=== PATIENT | female | born 1965 | race Caucasian/White ===

== ENCOUNTER → 2017-03-26 | Outpatient (CLI) | payer OTHER ==
--- NOTE | 2017-03-26 15:20 | US ---
EXAMINATION TYPE: US kidneys/renal and bladder DATE OF EXAM: 03/26/2017 COMPARISON: Correlation CT 03/22/2016 CLINICAL HISTORY: 51-year-old female N18.9 Chronic Kidney Disease. CKD TECHNIQUE: Multiple sonographic images of the kidneys and bladder are obtained. FINDINGS: Right Kidney: 11.2 x 5.3 x 5.3 cm without hydronephrosis. There is a tiny 8 mm cortical-based hypoec hoic lesion at the upper pole. Left Kidney: 10.8 x 6.6 x 5.1 cm without hydronephrosis. There is a 3.4 x 2.2 cm hypoechoic area at t he mid pole, suspected prominent column of Cordell when correlating with prior CT. Bladder: No gross abnormality. Bilateral Jets seen: yes IMPRESSION: 1. No hydronephrosis. 2. Tiny 8mm cortical lesion upper pole right kidney likely a tiny cortical cyst. Internal echoes cou ld be artifactual or could represent debris. Consider 6 month follow-up to reassess this area. 3. On the left, suspect a prominent column of Cordell when correlating with prior CT.
== END | disposition home or self-care (01) ==
LOC: RADUSWWP 13:40
PROVIDERS: ATTEND Family Medicine
DX: N28.9 Disorder of kidney and ureter, unspecified (principal)
CPT/HCPCS: 76770

== ENCOUNTER 2017-04-05 13:56 | Emergency (ER) | payer OTHER ==
--- NOTE | 2017-04-05 15:16 | ED ---
General Adult HPI - General Chief complaint: Upper Respiratory Infection Stated complaint: Cough/SOB Time Seen by Provider: 04/05/17 15:09 Source: patient, RN notes reviewed Mode of arrival: ambulatory Limitations: no limitations - History of Present Illness Initial comments: Patient is a 51-year-old female who presents emergency room today with chief complaint of cough congestion over the last week. She doesn't that she was at the family doctor earlier in the week and had her ears checked and had a negative strep test. She states that she's had increased cough congestion since that time. Positive sputum production it's been yellow in color. Patient states that she's having pain when she coughs feeling in her back as well. Patient admits some congestion. She admits to a sore throat. Denies any other complaints or symptoms currently. Patient denies any recent shortness of breath, chest pain, back pain, abdominal pain, nausea or vomiting, numbness or tingling, dysuria or hematuria, constipation or diarrhea, headaches or visual changes, or any other complaints. - Related Data Home Medications Medication Instructions Recorded Confirmed Cholecalciferol [Vitamin D3] 1,000 unit PO DAILY 03/22/16 04/05/17 Atenolol 100 mg PO DAILY 04/05/17 04/05/17 Lisinopril 40 mg PO DAILY 04/05/17 04/05/17 hydrALAZINE HCL [Apresoline] 50 mg PO TID 04/05/17 04/05/17 Previous Rx's Medication Instructions Recorded Afpb-Nkeo-Zkw 6.25-5-10Mg/5Ml 5 ml PO Q4-6H 5 Days 04/05/17 [Phenergan VC with Codeine] Allergies Allergy/AdvReac Type Severity Reaction Status Date / Time ibuprofen [From Motrin] AdvReac Abdominal Verified 04/05/17 15:18 Pain Review of Systems ROS Statement: Those systems with pertinent positive or pertinent negative responses have been documented in the HPI. ROS Other: All systems not noted in ROS Statement are negative. Past Medical History Past Medical History: Hypertension History of Any Multi-Drug Resistant Organisms: None Reported Past Surgical History: Section, Orthopedic Surgery, Tonsillectomy Additional Past Surgical History / Comment(s): 2 C-SECTIONS. C4 VETERBRAL SURGERY Past Anesthesia/Blood Transfusion Reactions: No Reported Reaction Past Psychological History: No Psychological Hx Reported Smoking Status: Current every day smoker Past Alcohol Use History: Daily Past Drug Use History: None Reported General Exam - General Exam Comments Initial Comments: General: The patient is awake and alert, in no distress, and does not appear acutely ill. Eye: Pupils are equal, round and reactive to light, extra-ocular movements are intact. No nystagmus. There is normal conjunctiva bilaterally. No signs of icterus. Ears, nose, mouth and throat: There are moist mucous membranes and no oral lesions. Neck: The neck is supple, there is no tenderness or JVD. Cardiovascular: There is a regular rate and rhythm. No murmur, rub or gallop is appreciated. Respiratory: Mild expiratory wheeze on the right with forced expiration. respirations are non-labored, breath sounds are equal. No stridor, rales, or rhonchi. Musculoskeletal: Normal ROM, no tenderness. Strength 5/5. Sensation intact. Pulses equal bilaterally 2+. Neurological: A&O x 3. CN II-XII intact, There are no obvious motor or sensory deficits. Coordination appears grossly intact. Speech is normal. Skin: Skin is warm and dry and no rashes or lesions are noted. Psychiatric: Cooperative, appropriate mood & affect, normal judgment. Limitations: no limitations Course Vital Signs 04/05/17 04/05/17 14:39 15:13 Temperature 100.1 F H Pulse Rate 81 Respiratory 16 18 Rate Blood Pressure 125/75 O2 Sat by Pulse 96 Oximetry Medical Decision Making - Medical Decision Making Chest x-ray negative for any acute abnormalities. Results were discussed with patient. Patient will talk medication for her symptoms advised follow-up the family doctor over the next 2 days. She states understanding and is in agreement. Disposition Clinical Impression: Upper respiratory infection Disposition: HOME SELF-CARE Condition: Good Instructions: Upper Respiratory Infection (ED) Additional Instructions: Please use medication as discussed. Please follow-up with family doctor in the next 2 days of symptoms have not improved. Please return to emergency room if the symptoms increase or worsen or for any other concerns. Prescriptions: Vzpr-Hlpf-Cgl 6.25-5-10Mg/5Ml [Phenergan VC with Codeine] 5 ml PO Q4-6H 5 Days Referrals: Robert Rendon MD [Primary Care Provider] - 1-2 days Time of Disposition: 16:09
--- NOTE | 2017-04-05 15:31 | XR ---
EXAMINATION TYPE: XR chest 2V DATE OF EXAM: 04/05/2017 COMPARISON: Chest x-ray March 22, 2016 HISTORY: Cough for one week. TECHNIQUE: Frontal and lateral views of the chest are obtained. FINDINGS: There is new left mid lung lateral linear atelectasis or scarring. No suspicious focal in filtrate, pleural effusion, or pneumothorax is present bilaterally. The cardiac silhouette size is wi thin normal limits. Anterior fusion plate lower cervical spine is now present.. IMPRESSION: No suspicious acute infiltrate identified.
[2017-04-05 16:31] VITALS: BP 126/77; PULSE 82; RESP 16; TEMP 98.7
== END 2017-04-05 16:25 | disposition home or self-care (01) ==
LOC: EC 13:56
DX: J06.9 Acute upper respiratory infection, unspecified (principal); I10 Essential (primary) hypertension; F17.200 Nicotine dependence, unspecified, uncomplicated; Z88.6 Allergy status to analgesic agent; Z79.899 Other long term (current) drug therapy
CPT/HCPCS: 71020; 99283

== ENCOUNTER → 2017-12-24 | Outpatient (CLI) | payer OTHER ==
--- NOTE | 2017-12-24 12:01 | CT ---
EXAMINATION TYPE: CT brain cspine wo con, CT facial bones wo con DATE OF EXAM: 12/24/2017 COMPARISON: NONE HISTORY: Right sided eye swelling with superior laceration CT DLP: 2019 (accession [id number]), 607.9 (accession [id number]) mGycm. Automated Exposure Control for D ose Reduction was Utilized. TECHNIQUE: CT scan of the head and cervical spine are performed without contrast. FINDINGS: There is no acute intracranial hemorrhage, mass effect, or midline shift identified. The ventricles and sulci are within normal limits in size. The globes are intact and the visualized sin uses are clear. Incidental note is made of exophthalmos. Very mild right periorbital and supraorbital as well as infraorbital soft tissue swelling is noted that is preseptal. No post septal soft tissue swelling. Intraconal and extraconal fat are unremarkable. Globes are symmetric and lenses are in plac e. Extraocular muscles are unremarkable. Cervical spine is visualized in its entirety from C1 through upper thoracic levels and demonstrates s atisfactory alignment without evidence of acute fracture or dislocation. Prevertebral soft tissue ap pears within normal limits. The C1-C2 articulation is unremarkable. There is reversal usual cervica l lordosis from C3 through C5. C6-C7 demonstrates anterior cervical fusion. Small posterior disc oste ophyte complexes seen at C3-C4 as well as at C5-C6. Mild multilevel uncovertebral hypertrophy and fac et arthropathy are seen. Prominent vascular groove is seen through the maxilla at the hard palate. Maxillary spine and pterygo id bones are intact. Nasal bone is intact. Orbits are intact. Zygomatic arches are symmetric. Temporo mandibular joints are unremarkable. Lamina papyracea are also intact. No evidence of facial bone frac ture. IMPRESSION: 1. There is no acute fracture or dislocation evident in the cervical spine. 2. No acute intracranial hemorrhage, mass effect, or midline shift is seen. 3. No evidence of facial bone fracture. 4. Right periorbital preseptal soft tissue swelling compatible with soft tissue contusion. No underly ing fracture, globe rupture, CT evidence of lens displacement, or post septal inflammatory fat strand ing is seen. Incidentally noted exophthalmos. 5. Mild multilevel degenerative changes of the cervical spine, postsurgical changes, and reversal usu al cervical lordosis.
== END | disposition home or self-care (01) ==
LOC: RADCTMAIN 11:22
PROVIDERS: ATTEND Family Medicine
DX: M47.812 Spondylosis without myelopathy or radiculopathy, cervical region (principal); R22.0 Localized swelling, mass and lump, head; Z98.1 Arthrodesis status
CPT/HCPCS: 70450; 70486; 72125

== ENCOUNTER 2018-04-13 14:58 | Emergency (ER) | payer OTHER ==
[2018-04-13 15:16] VITALS: TEMP 98.3
[2018-04-13] MEDS ORDERED: MORPHINE SULFATE 4 MG/ML SYRINGE IV STA (15:33)
[2018-04-13] MEDS ORDERED: ONDANSETRON 4 MG/2 ML VIAL IVP STA (15:33)
[2018-04-13] MEDS ORDERED: SODIUM CHLORIDE 0.9% 1,000 ML IV STA ×2 (15:33→18:56)
--- NOTE | 2018-04-13 15:36 | ED ---
General Adult HPI - General Chief complaint: Abdominal Pain Stated complaint: Stomach pain Time Seen by Provider: 04/13/18 15:22 Source: patient, RN notes reviewed Mode of arrival: ambulatory Limitations: no limitations - History of Present Illness Initial comments: Patient's a 52-year-old female presents emergency room today with a chief complaint of abdominal pain. Patient does admit that over the last today she's been expressing some abdominal discomfort. She describes it as "razor blades" throughout the entire abdomen. Patient states that she's had increased nausea vomiting diarrhea. She states that the nausea vomiting has improved over the last day but still having multiple bouts of diarrhea. Denies any recent travel or antibiotic use. Patient denies any other complaints currently. Patient denies any recent fever, chills, shortness of breath, chest pain, back pain, numbness or tingling, dysuria or hematuria, constipation or diarrhea, headaches or visual changes, or any other complaints. - Related Data Home Medications Medication Instructions Recorded Confirmed Lisinopril 40 mg PO DAILY 04/05/17 04/13/18 Atenolol/Chlorthalidone 1 tab PO DAILY 04/13/18 04/13/18 [Atenolol-Chlorthalidone 100-25] Multivitamins, Thera [Multivitamin 1 tab PO DAILY 04/13/18 04/13/18 (formulary)] hydrALAZINE HCL [Apresoline] 100 mg PO BID 04/13/18 04/13/18 Previous Rx's Medication Instructions Recorded Ciprofloxacin HCl [Cipro] 500 mg PO Q12HR #20 day 04/13/18 Dicyclomine [Bentyl] 20 mg PO QID #20 tablet 04/13/18 metroNIDAZOLE [Flagyl] 500 mg PO TID 10 Days tab 04/13/18 Allergies Allergy/AdvReac Type Severity Reaction Status Date / Time ibuprofen [From Motrin] AdvReac Abdominal Verified 04/13/18 15:44 Pain Review of Systems ROS Statement: Those systems with pertinent positive or pertinent negative responses have been documented in the HPI. ROS Other: All systems not noted in ROS Statement are negative. Past Medical History Past Medical History: Hypertension History of Any Multi-Drug Resistant Organisms: None Reported Past Surgical History: Section, Orthopedic Surgery, Tonsillectomy Additional Past Surgical History / Comment(s): 2 C-SECTIONS. C4 VETERBRAL SURGERY Past Anesthesia/Blood Transfusion Reactions: No Reported Reaction Past Psychological History: No Psychological Hx Reported Smoking Status: Current every day smoker Past Alcohol Use History: Daily Past Drug Use History: None Reported General Exam - General Exam Comments Initial Comments: General: The patient is awake and alert, in no distress, and does not appear acutely ill. Eye: Pupils are equal, round and reactive to light. Extra-ocular movements are intact. No nystagmus. There is normal conjunctiva bilaterally. No signs of icterus. Ears, nose, mouth and throat: There are moist mucous membranes and no oral lesions. Neck: The neck is supple, there is no tenderness or JVD. Cardiovascular: There is a regular rate and rhythm. No murmur, rub or gallop is appreciated. Respiratory: Lungs are clear to auscultation, respirations are non-labored, breath sounds are equal. No wheezes, stridor, rales, or rhonchi. Gastrointestinal: Soft on palpation. Patient does have increased tenderness right lower quadrant and right side of the abdomen. No rebound, guarding or CVA tenderness. Musculoskeletal: Normal ROM, no tenderness. Sensation intact. Strength 5/5. Pulses equal bilaterally 2+. Neurological: A&O x 3. CN II-XII intact, There are no obvious motor or sensory deficits. Coordination appears grossly intact. Speech is normal. Skin: Skin is warm and dry and no rashes or lesions are noted. Psychiatric: Cooperative, appropriate mood & affect, normal judgment. Limitations: no limitations Course Vital Signs 04/13/18 15:14 Temperature 98.3 F Pulse Rate 86 Respiratory 18 Rate Blood Pressure 95/63 O2 Sat by Pulse 99 Oximetry Medical Decision Making - Medical Decision Making Patient's labs been reviewed does show mildly elevated kidney function. Patient does have multiple bouts of diarrhea last 2 days. Patient C. diff negative. Remaining labs been reviewed. CT abdomen and pelvis does show evidence for colitis. Patient clinically appears well. Her vitals are stable. Options were discussed with patient about admission to the hospital. Patient states she would like to try outpatient treatment. Patient given a total 2 L IV fluids here in the emergency room. Will be discharged home placed on Cipro Flagyl advised follow-up the family doctor in the next 2 days. She states she has an appointment with her family doctor tomorrow. She is advised she should have kidney function rechecked later in the week. Advised return if symptoms increase or worsen. - Lab Data Result diagrams: 04/13/18 16:08 04/13/18 16:08 Lab Results 04/13/18 04/13/18 04/13/18 Range/Units 16:08 16:08 16:30 WBC 9.2 (3.8-10.6) k/uL RBC 3.63 L (3.80-5.40) m/uL Hgb 12.2 (11.4-16.0) gm/dL Hct 37.0 (34.0-46.0) % MCV 102.1 H (80.0-100.0) fL MCH 33.6 (25.0-35.0) pg MCHC 32.9 (31.0-37.0) g/dL RDW 12.6 (11.5-15.5) % Plt Count 238 (150-450) k/uL Neutrophils % 88 % Lymphocytes % 7 % Monocytes % 3 % Eosinophils % 1 % Basophils % 0 % Neutrophils # 8.0 H (1.3-7.7) k/uL Lymphocytes # 0.7 L (1.0-4.8) k/uL Monocytes # 0.3 (0-1.0) k/uL Eosinophils # 0.0 (0-0.7) k/uL Basophils # 0.0 (0-0.2) k/uL Macrocytosis Slight Sodium 135 L (137-145) mmol/L Potassium 4.5 (3.5-5.1) mmol/L Chloride 108 H (98-107) mmol/L Carbon Dioxide 16 L (22-30) mmol/L Anion Gap 11 mmol/L BUN 32 H (7-17) mg/dL Creatinine 1.87 H (0.52-1.04) mg/dL Est GFR (CKD-EPI)AfAm 36 (>60 ml/min/1.73 sqM) Est GFR (CKD-EPI)NonAf 31 (>60 ml/min/1.73 sqM) Glucose 114 H (74-99) mg/dL Calcium 10.2 (8.4-10.2) mg/dL Total Bilirubin 0.4 (0.2-1.3) mg/dL AST 30 (14-36) U/L ALT 36 (9-52) U/L Alkaline Phosphatase 87 (38-126) U/L Total Protein 6.9 (6.3-8.2) g/dL Albumin 3.9 (3.5-5.0) g/dL Amylase 45 (30-110) U/L Lipase 107 (23-300) U/L Urine Color Urine Appearance (Clear) Urine pH (5.0-8.0) Ur Specific [place] (1.001-1.035) Urine Protein (Negative) Urine Glucose (UA) (Negative) Urine Ketones (Negative) Urine Blood (Negative) Urine Nitrite (Negative) Urine Bilirubin (Negative) Urine Urobilinogen (<2.0) mg/dL Ur Leukocyte Esterase (Negative) Urine RBC (0-5) /hpf Urine WBC (0-5) /hpf Ur Squamous Epith Cells (0-4) /hpf Urine Bacteria (None) /hpf Hyaline Casts (0-2) /lpf Granular Casts (0) /lpf Urine Mucus (None) /hpf C. difficile (EIA) Intrp Negative (Negative) 04/13/18 Range/Units 16:39 WBC (3.8-10.6) k/uL RBC (3.80-5.40) m/uL Hgb (11.4-16.0) gm/dL Hct (34.0-46.0) % MCV (80.0-100.0) fL MCH (25.0-35.0) pg MCHC (31.0-37.0) g/dL RDW (11.5-15.5) % Plt Count (150-450) k/uL Neutrophils % % Lymphocytes % % Monocytes % % Eosinophils % % Basophils % % Neutrophils # (1.3-7.7) k/uL Lymphocytes # (1.0-4.8) k/uL Monocytes # (0-1.0) k/uL Eosinophils # (0-0.7) k/uL Basophils # (0-0.2) k/uL Macrocytosis Sodium (137-145) mmol/L Potassium (3.5-5.1) mmol/L Chloride (98-107) mmol/L Carbon Dioxide (22-30) mmol/L Anion Gap mmol/L BUN (7-17) mg/dL Creatinine (0.52-1.04) mg/dL Est GFR (CKD-EPI)AfAm (>60 ml/min/1.73 sqM) Est GFR (CKD-EPI)NonAf (>60 ml/min/1.73 sqM) Glucose (74-99) mg/dL Calcium (8.4-10.2) mg/dL Total Bilirubin (0.2-1.3) mg/dL AST (14-36) U/L ALT (9-52) U/L Alkaline Phosphatase (38-126) U/L Total Protein (6.3-8.2) g/dL Albumin (3.5-5.0) g/dL Amylase (30-110) U/L Lipase (23-300) U/L Urine Color Dark Brown Urine Appearance Cloudy H (Clear) Urine pH 5.0 (5.0-8.0) Ur Specific [place] 1.019 (1.001-1.035) Urine Protein 1+ H (Negative) Urine Glucose (UA) Negative (Negative) Urine Ketones Negative (Negative) Urine Blood Negative (Negative) Urine Nitrite Negative (Negative) Urine Bilirubin Negative (Negative) Urine Urobilinogen 2.0 (<2.0) mg/dL Ur Leukocyte Esterase Negative (Negative) Urine RBC 1 (0-5) /hpf Urine WBC 7 H (0-5) /hpf Ur Squamous Epith Cells 6 H (0-4) /hpf Urine Bacteria Moderate H (None) /hpf Hyaline Casts 128 H (0-2) /lpf Granular Casts 140 (0) /lpf Urine Mucus Moderate H (None) /hpf C. difficile (EIA) Intrp (Negative) Disposition Clinical Impression: Abdominal pain, Colitis Disposition: HOME SELF-CARE Condition: Good Instructions: Colitis (ED) Additional Instructions: Please use medication as discussed. Please follow-up with family doctor in the next 2 days of symptoms have not improved. Please return to emergency room if the symptoms increase or worsen or for any other concerns. Prescriptions: Ciprofloxacin HCl [Cipro] 500 mg PO Q12HR #20 day Dicyclomine [Bentyl] 20 mg PO QID #20 tablet metroNIDAZOLE [Flagyl] 500 mg PO TID 10 Days tab Is patient prescribed a controlled substance at d/c from ED?: No Referrals: Robert Rendon MD [Primary Care Provider] - 1-2 days Time of Disposition: 19:06
[2018-04-13 16:33] LABS: Basophils % (A) 0 %; Eosinophils % (A) 1 %; HGB 12.2 gm/dL (11.4-16.0); Lymphocytes # (A) 0.7 k/uL (1.0-4.8); Lymphocytes % (A) 7 %; MCH 33.6 pg (25.0-35.0); MCHC 32.9 g/dL (31.0-37.0); MCV 102.1 fL (80.0-100.0); Macrocytosis Slight; Mean Platelet Volume 8.4; Monocytes # (A) 0.3 k/uL (0-1.0); Monocytes % (A) 3 %; Neutrophils % (A) 88 %; Platelet Count 238 k/uL (150-450); RBC 3.63 m/uL (3.80-5.40); RDW 12.6 % (11.5-15.5); WBC 9.2 k/uL (3.8-10.6)
[2018-04-13 16:45] LABS: Albumin 3.9 g/dL (3.5-5.0); Calcium 10.2 mg/dL (8.4-10.2); Potassium 4.5 mmol/L (3.5-5.1); Total Bilirubin 0.4 mg/dL (0.2-1.3); Total Protein 6.9 g/dL (6.3-8.2)
[2018-04-13 16:58] LABS: Appearance,Urine Cloudy (Clear); Bacteria,Urine Moderate /hpf; Bilirubin,Urine Negative (Negative); Blood,Urine Negative (Negative); Color,Urine Dark Brown; Glucose,Urine (UA) Negative (Negative); Granular Casts,Urine 140 /lpf (0); Hyaline Casts,Urine 128 /lpf (0-2); Ketones,Urine Negative (Negative); Leukocyte Esterase,Urine Negative (Negative); Mucus,Urine Moderate /hpf; Nitrite,Urine Negative (Negative); Protein,Urine 1+ (Negative); RBC,Urine 1 /hpf (0-5); Specific Gravity,Urine 1.019 (1.001-1.035); Squamous Epithelial Cell,Urine 6 /hpf (0-4); WBC,Urine 7 /hpf (0-5)
--- NOTE | 2018-04-13 18:28 | CT ---
EXAMINATION TYPE: CT abdomen pelvis w con DATE OF EXAM: 04/13/2018 COMPARISON: 03/22/2016 HISTORY: Diarrhea x 3 days, right lower quadrant pain. CT DLP: 945.7 mGycm Automated exposure control for dose reduction was used. TECHNIQUE: Helical acquisition of images was performed from the lung bases through the pelvis. CONTRAST: Performed without Oral Contrast and with IV Contrast, patient injected with 100 mL of Isovu e 300. FINDINGS: LUNG BASES: No significant abnormality is appreciated. LIVER/GB: A 1 cm hypodense right hepatic lobe lesion is identified, which was hyperdense on the prior 03/22/2016 CT. This presumably represents an incidental cavernous hemangioma which can be proven usin g MRI. PANCREAS: No significant abnormality is seen. SPLEEN: No significant abnormality is seen. ADRENALS: No significant abnormality is seen. KIDNEYS: No significant abnormality is seen. FREE AIR: No free air is visualized. RETROPERITONEAL ADENOPATHY: None visualized REPRODUCTIVE ORGANS: No significant abnormality is seen URINARY BLADDER: No significant abnormality is seen. PELVIC ADENOPATHY: None visualized. OSSEOUS STRUCTURES: No significant abnormality is seen. BOWEL: There is prominent circumferential colonic indistinctness with associated edematous reticulat ion throughout the ascending mesocolon - extending from the cecum up to the hepatic flexure. There is associated mild circumferential mural thickening. THere is no extraluminal gas. No abnormal gas or f luid collections throughout the abdomen and pelvis. The appendix does not appear to be involved. VASCULATURE: No acute process. IMPRESSION: ASCENDING COLITIS, LIKELY INFLAMMATORY/INFECTIOUS ETIOLOGY.
[2018-04-13 19:05] VITALS: BP 113/80
[2018-04-13 20:09] VITALS: PULSE 76; RESP 16
== END 2018-04-13 20:09 | disposition home or self-care (01) ==
LOC: EC 14:58
DX: K52.9 Noninfective gastroenteritis and colitis, unspecified (principal); I10 Essential (primary) hypertension; F17.200 Nicotine dependence, unspecified, uncomplicated; Z79.899 Other long term (current) drug therapy; Z88.6 Allergy status to analgesic agent
CPT/HCPCS: 99284; 96374; 96375; 96361 ×3; 36415; 80053; 82150; 83690; 85025; 81001; 87324; 74177; J2270; J2405; Q9967

== ENCOUNTER 2019-03-28 14:10 | Emergency (ER) | payer OTHER ==
[2019-03-28 14:58] LABS: Appearance,Urine Clear (Clear); Bilirubin,Urine Negative (Negative); Blood,Urine Negative (Negative); Color,Urine Light Yellow; Glucose,Urine (UA) Negative (Negative); Ketones,Urine Negative (Negative); Leukocyte Esterase,Urine Negative (Negative); Nitrite,Urine Negative (Negative); Protein,Urine Negative (Negative); Specific Gravity,Urine 1.007 (1.001-1.035); Urobilinogen,Urine <2.0 mg/dL (<2.0)
[2019-03-28 15:09] LABS: Amphetamine Screen,Urine Not Detected (NotDetected); Barbiturate Screen,Urine Not Detected (NotDetected); Benzodiazepines Screen,Urine Not Detected (NotDetected); Cocaine Screen,Urine Not Detected (NotDetected); Methadone Screen, Urine Not Detected (NotDetected); Opiate Screen,Urine Not Detected (NotDetected); Oxycodone Screen, Urine Not Detected (NotDetected); Phencyclidine Screen,Urine Not Detected (NotDetected); Tricyclic Antidepressant,Urine Not Detected (NotDetected); Urn Cannabinoid Scrn Detected (NotDetected)
[2019-03-28] MEDS ORDERED: DIPH,PERTUS(ACELL)TETVAC-LF 0.5 ML VIAL IM ONE (15:45)
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
[2019-03-28] MEDS ORDERED: NICOTINE 14MG/24HR PATCH TRANSDERM STA (16:26)
[2019-03-28] MEDS ORDERED: ACETAMINOPHEN TAB 500 MG TAB PO STA (16:59)
[2019-03-28 18:13] VITALS: BP 134/90; PULSE 78; RESP 18
== END 2019-03-28 18:11 | disposition home or self-care (01) ==
LOC: EC 14:10
DX: F32.9 Major depressive disorder, single episode, unspecified (principal); F10.129 Alcohol abuse with intoxication, unspecified; S51.812A Laceration without foreign body of left forearm, initial encounter; S51.811A Laceration without foreign body of right forearm, initial encounter; S71.119A Laceration without foreign body, unspecified thigh, initial encounter; Z23 Encounter for immunization; I10 Essential (primary) hypertension; F17.200 Nicotine dependence, unspecified, uncomplicated; Z79.899 Other long term (current) drug therapy; Z88.6 Allergy status to analgesic agent; X78.9XXA Intentional self-harm by unspecified sharp object, initial encounter
CPT/HCPCS: 82075; 81003; 80306; 90715; 99285; 90471; S4990

== ENCOUNTER 2019-08-13 11:00 | Inpatient (IN) | payer MEDICAID, OTHER ==
--- NOTE | 2019-08-13 11:43 | ED ---
General Adult HPI - General Chief complaint: Psychiatric Symptoms Stated complaint: mental health eval Time Seen by Provider: 08/13/19 11:22 Source: patient, RN notes reviewed Mode of arrival: ambulatory Limitations: no limitations - History of Present Illness Initial comments: Patient is a pleasant 54-year-old female presenting to the emergency Department with depression. Patient states her wants her evaluated. Patient admits to having many stressors of being depressed. Patient is tearful. Patient denies suicidal or homicidal thoughts. No hallucinations. He should does have some back discomfort however that has been chronic for years. Patient has not been sleeping quite as well as normal however is sleeping. Patient has been eating and drinking less than normal. Patient denies alcohol or drug use. - Related Data Home Medications Medication Instructions Recorded Confirmed Atenolol/Chlorthalidone 1 tab PO DAILY 04/13/18 03/28/19 [Atenolol-Chlorthalidone 100-25] Ergocalciferol (Vitamin D2) 50,000 unit PO Q30D 03/28/19 03/28/19 [Drisdol] HYDROcodone/APAP 5-325MG [[place] 1 tab PO DAILY PRN 03/28/19 03/28/19 5-325] Lisinopril 20 mg PO DAILY 03/28/19 03/28/19 buPROPion HCL [Wellbutrin XL] 150 mg PO BID 03/28/19 03/28/19 Allergies Allergy/AdvReac Type Severity Reaction Status Date / Time ibuprofen [From Motrin] AdvReac Abdominal Verified 08/13/19 11:04 Pain Review of Systems ROS Statement: Those systems with pertinent positive or pertinent negative responses have been documented in the HPI. ROS Other: All systems not noted in ROS Statement are negative. Constitutional: Denies: fever Eyes: Denies: eye pain ENT: Denies: ear pain Respiratory: Denies: cough Cardiovascular: Denies: chest pain Endocrine: Denies: fatigue Gastrointestinal: Denies: abdominal pain Genitourinary: Denies: dysuria Musculoskeletal: Reports: back pain (Low back pain for the past at least 2 years) Skin: Denies: rash Neurological: Denies: weakness Psychiatric: Reports: anxiety, depression. Denies: auditory hallucinations, visual hallucinations, homicidal thoughts, suicidal thoughts Past Medical History Past Medical History: Hypertension History of Any Multi-Drug Resistant Organisms: None Reported Past Surgical History: Back Surgery, Section, Orthopedic Surgery, Tonsillectomy Additional Past Surgical History / Comment(s): 2 C-SECTIONS. C4 VETERBRAL SURGERY Past Anesthesia/Blood Transfusion Reactions: No Reported Reaction Past Psychological History: Anxiety, Depression Smoking Status: Current every day smoker Past Alcohol Use History: None Reported Past Drug Use History: None Reported General Exam Limitations: no limitations General appearance: alert, in no apparent distress Head exam: Present: normocephalic Eye exam: Present: normal appearance Neck exam: Present: normal inspection Respiratory exam: Present: normal lung sounds bilaterally Cardiovascular Exam: Present: regular rate, normal rhythm GI/Abdominal exam: Present: soft. Absent: tenderness Extremities exam: Present: normal inspection Back exam: Present: tenderness (Mild tenderness lumbar spine) Neurological exam: Present: alert Psychiatric exam: Present: depressed, other (Tearful) Skin exam: Present: normal color Course Vital Signs 08/13/19 11:01 Temperature 97.8 F Pulse Rate 64 Respiratory 18 Rate Blood Pressure 124/76 O2 Sat by Pulse 98 Oximetry Medical Decision Making - Medical Decision Making Patient seen by mental health services, who will admit. - Lab Data Lab Results 08/13/19 Range/Units Unknown Urine Opiates Screen Not Detected (NotDetected) Ur Oxycodone Screen Not Detected (NotDetected) Urine Methadone Screen Not Detected (NotDetected) Ur Propoxyphene Screen Not Detected (NotDetected) Ur Barbiturates Screen Not Detected (NotDetected) U Tricyclic Antidepress Not Detected (NotDetected) Ur Phencyclidine Scrn Not Detected (NotDetected) Ur Amphetamines Screen Not Detected (NotDetected) U Methamphetamines Scrn Not Detected (NotDetected) U Benzodiazepines Scrn Not Detected (NotDetected) Urine Cocaine Screen Not Detected (NotDetected) U Marijuana (THC) Screen Detected H (NotDetected) - Radiology Data Radiology results: image reviewed (Lumbar x-ray shows mild wedging of L1 which is likely chronic) Disposition Clinical Impression: Depression Disposition: TRANSFER TO PSYCH HOSP/UNIT Is patient prescribed a controlled substance at d/c from ED?: No Referrals: Robert Rendon MD [Primary Care Provider] - 1-2 days Decision Time: 14:09
[2019-08-13 11:57] LABS: Amphetamine Screen,Urine Not Detected (NotDetected); Barbiturate Screen,Urine Not Detected (NotDetected); Benzodiazepines Screen,Urine Not Detected (NotDetected); Cocaine Screen,Urine Not Detected (NotDetected); Methadone Screen, Urine Not Detected (NotDetected); Opiate Screen,Urine Not Detected (NotDetected); Oxycodone Screen, Urine Not Detected (NotDetected); Phencyclidine Screen,Urine Not Detected (NotDetected); Tricyclic Antidepressant,Urine Not Detected (NotDetected); Urn Cannabinoid Scrn Detected (NotDetected)
--- NOTE | 2019-08-13 12:23 | XR ---
EXAMINATION TYPE: XR lumbar spine 2 or 3V , 3 VIEWS DATE OF EXAM ORDERED: 08/13/2019 HISTORY: Low back pain. COMPARISON: None. FINDINGS: There is mild wedging of the L1 vertebral body. This appears chronic. Alignment is unremar kable. This hypertrophic spondylosis at L1-2 and to a lesser extent L3-4. Alignment remains normal. T he pedicles are intact. There is a minimal levoscoliosis. IMPRESSION: MILD WEDGING OF THE L1 VERTEBRAL BODY WHICH I BELIEVE IS CHRONIC WELL SOME MILD DEGENERATIVE CH HITESH.
[2019-08-13] MEDS ORDERED: LORazepam 1 MG TAB PO STA (13:07)
[2019-08-13] MEDS ORDERED: MAG HYDROX/AL HYDROX/SIMETH 30 ML CUP PO PRN (14:15)
[2019-08-13] MEDS ORDERED: MAGNESIUM HYDROXIDE 2,400 MG/10 ML CUP PO PRN (14:15)
[2019-08-13] MEDS: NICOTINE 21MG/24HR PATCH TRANSDERM SCH (16:08)
[2019-08-13] MEDS: ACETAMINOPHEN TAB 325 MG TAB PO PRN (20:19)
[2019-08-13] MEDS ORDERED: PANTOPRAZOLE 40 MG TABLET PO SCH (22:45)
[2019-08-13] MEDS: PANTOPRAZOLE 40 MG TABLET PO SCH (22:52)
[2019-08-14] MEDS: ACETAMINOPHEN TAB 325 MG TAB PO PRN ×3 (06:01→16:39)
[2019-08-14 07:49] LABS: RBC 4.02 m/uL (3.80-5.40); WBC 5.5 k/uL (3.8-10.6)
[2019-08-14 07:50] LABS: Basophils % (A) 1 %; Eosinophils # (A) 0.1 k/uL (0-0.7); Eosinophils % (A) 3 %; HCT 37.7 % (34.0-46.0); HGB 12.4 gm/dL (11.4-16.0); Lymphocytes # (A) 1.9 k/uL (1.0-4.8); Lymphocytes % (A) 34 %; MCH 30.8 pg (25.0-35.0); MCHC 32.8 g/dL (31.0-37.0); MCV 93.9 fL (80.0-100.0); Mean Platelet Volume 8.9; Monocytes # (A) 0.4 k/uL (0-1.0); Monocytes % (A) 7 %; Neutrophils # (A) 2.9 k/uL (1.3-7.7); Neutrophils % (A) 53 %; Platelet Count 283 k/uL (150-450); RDW 12.4 % (11.5-15.5)
[2019-08-14 08:00] LABS: Albumin 4.8 g/dL (3.5-5.0); Calcium 10.5 mg/dL (8.4-10.2); Potassium 4.5 mmol/L (3.5-5.1); Total Bilirubin 0.6 mg/dL (0.2-1.3); Total Protein 7.8 g/dL (6.3-8.2)
[2019-08-14] MEDS: NICOTINE 21MG/24HR PATCH TRANSDERM SCH (08:25)
[2019-08-14] MEDS: LISINOPRIL 20 MG TAB PO SCH (08:25)
[2019-08-14] MEDS: PANTOPRAZOLE 40 MG TABLET PO SCH (08:25)
[2019-08-14] MEDS: CHLORTHALIDONE 25 MG TAB PO SCH (08:25)
[2019-08-14] MEDS: ATENOLOL 50 MG TAB PO SCH (08:25)
[2019-08-14] MEDS ORDERED: NICOTINE 21MG/24HR PATCH TRANSDERM SCH (09:00)
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
[2019-08-14] MEDS: buPROPion XL 300 MG TAB.ER.24H PO SCH (12:23)
[2019-08-14] MEDS: ESCITALOPRAM 10 MG TAB PO SCH (12:23)
[2019-08-14] MEDS ORDERED: IOPAMIDOL CONTRAST (ORAL USE) VIAL PO PRN (12:36)
--- NOTE | 2019-08-14 13:01 | XR ---
EXAMINATION TYPE: XR chest 2V DATE OF EXAM: 08/14/2019 HISTORY: abd pain, SOB. REFERENCE: Previous study dated 04/05/2017. FINDINGS: There has been a previous ACDF of the lower cervical spine. Lung volumes are prominent. The lungs appear clear. Pleural space are clear. The heart is not enlarge d. IMPRESSION: COPD.
--- NOTE | 2019-08-14 15:24 | CT ---
EXAMINATION TYPE: CT abdomen pelvis wo con DATE OF EXAM: 08/14/2019 COMPARISON: 04/13/2018 HISTORY: RLQ pain CT DLP: 258.5 mGycm Automated exposure control for dose reduction was used. Multiple axial sections were obtained from the diaphragm to the floor the pelvis with oral contrast o nly. Lung bases are clear. There is no pleural effusion. Heart size is normal. There is no pericardial eff usion. Stomach is intact. Liver spleen pancreas gallbladder appear normal. Bile ducts are not dilated. There is no adrenal mass. There is 2 cm vertical cyst lateral right kidney. Kidneys show no hydroneph rosis. Ureters are not dilated. There is no retroperitoneal adenopathy. Bladder distends smoothly. Ut erus is anteverted. There is no inguinal hernia. There are sigmoid minimal diverticula. There is no e vidence of diverticulitis. Appendix is posterior and superior and appears normal. There is no mesente matt edema. There is no ascites or free air. There is no sign of a bowel obstruction. Lumbar vertebra have normal alignment. There is no compression fracture. Bony pelvis is intact. IMPRESSION: Normal appendix. No evidence of renal stone or obstruction. No sign of acute abdomen and pelvis. Ther e is clearing of the inflammatory changes around the ascending colon compared to last exam.
[2019-08-14] MEDS ORDERED: HYDROcodone/APAP 5-325MG 1 EACH TAB PO STA (17:54)
--- NOTE | 2019-08-14 22:40 | CONS ---
CONSULTATION CHIEF COMPLAINT: Major depression with a history of alcoholism. HISTORY OF PRESENT ILLNESS: This lady came in with problems relating to acute episode of depression. She has not been drinking. She is complaining also of right lower quadrant pain, which she states has been there for some time. She has had no fever, chills, diarrhea, hematochezia, urinary complaints, etc. She is also complaining of some pain in the right buttock area where there does seem to be slight swelling. REVIEW OF SYSTEMS: She has had no problems with vision or hearing, headaches, neurologic problems, chest pain, shortness of breath, palpitations, syncope, etc. She has had a history of hypertension. She has not had any vomiting, incontinence, dysuria, frequency, hematuria, diabetes, etc. Past medical history, family history, personal and social histories are all detailed in her admitting summary. She has a history of alcoholism, but has been off alcohol for about a year now. PHYSICAL EXAMINATION: Blood pressure is 124/80 with a pulse of 68, respirations 29. She is afebrile. In general, she appeared to be in no acute distress. Skin color is normal. Skin is warm, dry. Lymph nodes not enlarged. Head, ears, eyes, nose, mouth, and throat were normal. Neck veins not distended. Thyroid is not enlarged. CHEST: Clear. Cardiac exam is normal and the abdomen reveals tenderness in the right lower quadrant. No definite masses. There are bowel sounds. She also has a soft tissue fullness in the right buttock area. Extremities are normal. Neurological is intact. IMPRESSION: 1. Depression. 2. Alcoholism. 3. Right lower quadrant abdominal pain. 4. Swelling or mass in the right buttock. RECOMMENDATIONS: 1. Her usual psychiatric treatment. 2. CT of the abdomen and pelvis without contrast because her GFR is 39. 3. Ultrasound of the right buttocks. Thank you for this consultation, respectively, MMODL / IJN: [id number] /
[2019-08-15] MEDS: NICOTINE 21MG/24HR PATCH TRANSDERM SCH (08:24)
[2019-08-15] MEDS: PANTOPRAZOLE 40 MG TABLET PO SCH (08:24)
[2019-08-15] MEDS: CHLORTHALIDONE 25 MG TAB PO SCH (08:25)
[2019-08-15] MEDS: ESCITALOPRAM 10 MG TAB PO SCH (08:25)
[2019-08-15] MEDS: ATENOLOL 50 MG TAB PO SCH (08:25)
[2019-08-15] MEDS: buPROPion XL 300 MG TAB.ER.24H PO SCH (08:25)
[2019-08-15] MEDS: LISINOPRIL 20 MG TAB PO SCH (08:26)
[2019-08-15 09:35] LABS: Basophils % (A) 1 %; Eosinophils # (A) 0.2 k/uL (0-0.7); Eosinophils % (A) 2 %; HCT 38.5 % (34.0-46.0); HGB 12.5 gm/dL (11.4-16.0); Lymphocytes % (A) 34 %; MCH 30.7 pg (25.0-35.0); MCHC 32.5 g/dL (31.0-37.0); MCV 94.4 fL (80.0-100.0); Monocytes # (A) 0.4 k/uL (0-1.0); Monocytes % (A) 6 %; Neutrophils # (A) 3.3 k/uL (1.3-7.7); Neutrophils % (A) 55 %; Platelet Count 302 k/uL (150-450); RBC 4.08 m/uL (3.80-5.40); RDW 12.4 % (11.5-15.5); WBC 5.9 k/uL (3.8-10.6)
[2019-08-15 09:49] LABS: Albumin 4.9 g/dL (3.5-5.0); Calcium 10.8 mg/dL (8.4-10.2); Total Bilirubin 0.5 mg/dL (0.2-1.3)
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
[2019-08-15 15:25] LABS: Appearance,Urine Clear (Clear); Bacteria,Urine Rare /hpf; Bilirubin,Urine Negative (Negative); Blood,Urine Negative (Negative); Color,Urine Yellow; Glucose,Urine (UA) Negative (Negative); Hyaline Casts,Urine 43 /lpf (0-2); Ketones,Urine Negative (Negative); Leukocyte Esterase,Urine Small (Negative); Mucus,Urine Rare /hpf; Nitrite,Urine Negative (Negative); PH, Urine 5.5 (5.0-8.0); Protein,Urine Negative (Negative); RBC,Urine 1 /hpf (0-5); Specific Gravity,Urine 1.017 (1.001-1.035); Squamous Epithelial Cell,Urine 4 /hpf (0-4); Urobilinogen,Urine <2.0 mg/dL (<2.0); WBC,Urine 3 /hpf (0-5)
[2019-08-15] MEDS: ACETAMINOPHEN TAB 325 MG TAB PO PRN (15:53)
--- NOTE | 2019-08-15 16:02 | US ---
EXAMINATION TYPE: US mass soft tissue chest/back DATE OF EXAM: 08/15/2019 COMPARISON: NONE CLINICAL HISTORY: Mass on Right buttock. Right upper buttock area of pain x couple years TECHNIQUE/FINDINGS: Targeted ultrasound was performed of the gluteal regions for the right-sided pain . Right upper buttock area of concern: no abnormality seen Left upper buttock for comparison: no abnormality seen IMPRESSION: No sonographic abnormality to correspond to the patient's area of pain.
[2019-08-15 22:02] LABS: Urine Alcohol Negative (Negative); Urine Barbiturate Negative (Negative); Urine Cocaine Negative (Negative); Urine Methadone Negative (Negative); Urine Opiates Positive (Negative); Urine Phencyclidine Negative (Negative)
[2019-08-16 00:28] VITALS: TEMP 98.4
[2019-08-16] MEDS: ACETAMINOPHEN TAB 325 MG TAB PO PRN (08:03)
[2019-08-16] MEDS: CHLORTHALIDONE 25 MG TAB PO SCH (08:04)
[2019-08-16] MEDS: NICOTINE 21MG/24HR PATCH TRANSDERM SCH (08:04)
[2019-08-16] MEDS: ATENOLOL 50 MG TAB PO SCH (08:04)
[2019-08-16] MEDS: LISINOPRIL 20 MG TAB PO SCH (08:05)
[2019-08-16] MEDS: ESCITALOPRAM 10 MG TAB PO SCH (08:05)
[2019-08-16] MEDS: PANTOPRAZOLE 40 MG TABLET PO SCH (08:05)
[2019-08-16] MEDS: buPROPion XL 300 MG TAB.ER.24H PO SCH (08:05)
[2019-08-16 08:56] VITALS: BP 118/79; PULSE 111; RESP 16
--- NOTE | 2019-08-16 13:40 | CONS ---
CONSULTATION REASON FOR CONSULT: Renal failure. HISTORY OF PRESENT ILLNESS: The patient is a 54-year-old female who has a history of hypertension and history of EtOH abuse previously. Patient also has a history of depression and was admitted to the inpatient psych unit. She is actually being discharged today. The patient is noted to have a serum creatinine of 1.53 yesterday, which is now down to 1.49. Review of previous labs shows creatinine as low as 0.8 in 2016 and about 1.8 in 2018. Patient states she has lost a significant amount of weight recently and her blood pressure has been running on the lower side at home. She is maintained on lisinopril 20 mg daily along with chlorthalidone 25 mg daily. No history of use of nonsteroidal anti- inflammatory agents. Blood pressure has been on the lower side with systolic around 112 to 113 mmHg. The patient denies any significant change in her urine output. PAST MEDICAL HISTORY: Depression, ETOH abuse, hypertension. PAST SURGICAL HISTORY: , back surgery, tonsillectomy, vertebral surgery. SOCIAL HISTORY: Positive for smoking. No history of drug abuse. Patient does have a history of EtOH abuse. She does have a history of anxiety and depression. MEDICATIONS: Medications prior to admission included chlorthalidone lisinopril, Wellbutrin, [place], Drisdol. REVIEW OF SYSTEMS: As per HPI. Other systems negative. PHYSICAL EXAMINATION: On examination, patient is comfortable, awake, alert, oriented x3, not in any acute distress. Blood pressure is 118/79, heart rate 111 per minute. She is afebrile EXAMINATION OF THE HEART: S1, S2. EXAMINATION OF THE LUNGS: Bilateral breath sounds are heard. ABDOMEN: Soft, nontender. Examination of lower extremities shows no evidence of edema. DAMPENER OPERATOR exam grossly intact. LABS: Labs show sodium 138, potassium 5.0, chloride 104, CO2 is 21, BUN 32, creatinine 1.49, hemoglobin 12.5 g/dL and UA which showed no blood or protein. ASSESSMENT: 1. Acute kidney injury, mostly prerenal. I will hold off on the CRISTI inhibitors for now as blood pressure remains on the lower side and patient has lost a significant amount of weight recently. She is advised to monitor blood pressure at home when she can resume half the dose of the CRISTI inhibitors if her systolic blood pressure remains persistently above 145 mmHg. 2. Rule out chronic kidney disease. Previous creatinine was as low as 0.8 in 2016, but we have a creatinine 1.8 in 2018. However, I believe that was an acute kidney injury. Patient will need followup as outpatient. 3. Hypertension. Blood pressure currently on the lower side. Hold off on lisinopril. Continue with the chlorthalidone for now. 4. Depression, currently improved. Patient will be discharged from inpatient psych. 5. Mild hypercalcemia. Patient is not on any calcium supplements. However, the chlorthalidone can contribute to the hypercalcemia as it is a thiazide diuretic. We will repeat the labs as outpatient and if her calcium remains elevated, patient will need to discontinue the thiazide diuretics. She will also need further workup for the hypercalcemia including PTH and CRISTI level and vitamin D level. I will decrease the dose of chlorthalidone in the meantime to 12.5 mg from 25 mg. Thank you for this consultation. We will continue to follow the patient with you. She should follow up as outpatient for CKD, hypercalcemia and acute kidney injury along with hypertension. MMODL / IJN: [id number] /
--- NOTE | 2019-08-16 15:20 | P.DS ---
Providers Date of admission: 08/13/19 14:09 Attending physician: Manas Small MD Consults: 08/13/19 14:15 Consult Physician Routine Consulting Provider: Robert Rendon Consult Reason/Comments: medical management Do you want consulting provider notified?: Yes 08/15/19 15:13 Consult Physician Stat Consulting Provider: Laney Morris Consult Reason/Comments: High GFR, BUN, CRE Do you want consulting provider notified?: Yes Primary care physician: Robert Rendon - Discharge Diagnosis(es) (1) Major depressive disorder, recurrent severe without psychotic features Status: Chronic Priority: Medium (2) Alcohol use disorder Status: Chronic Priority: Low (3) Marital or partner relational problem Status: Chronic Priority: Medium Hospital Course: She is a 54-year-old female admitted to the psychiatric unit voluntarily with history of suicidal ideation. She was initially evaluated by a psychiatric nurse and emergency room and described feeling sad, depressed and having increased anxiety. She originally denied suicidal thoughts, intent or plan. We are considering discharging her home with her intervene and demanded that she be admitted to the hospital. Reportedly the boyfriend was belligerent with staff and with the patient. She became distraught and verbalized some hopeless thinking and talked about not feeling safe to return home. She described several symptoms of depression including tearfulness, fluctuation in appetite and energy, hopeless thinking and increased anxiety. Past history significant for an alcohol use disorder and she described a 10 year history of daily alcohol use. She alleged that her relationship with her changed after she stopped drinking. He has a history of mental illness and an alcohol use problem. She believes he is angry because she no longer will drink with him. We admitted him her to the psychiatric unit under care of this policy writer typist. Reportedly Is a biopsychosocial assessment. The application security consultant distance education faculty liaison completed initial physical exam and medical history and diagnosed a right lower quadrant abdominal pain and swelling or masses right buttocks. He ordered a CT of the abdomen and pelvis an ultrasound of the right buttocks. The computed tomography scan of the abdomen pelvis showed normal appendix, no evidence of renal stone of disruption, no sign of acute abdomen and pelvis and clearing of inflammatory changes around the ascending colon. The ultrasound showed no abnormality to correspond with the patient's area of pain. The second consult diagnosed acute congestive injury mostly prerenal, rule out kidney disease, hypertension and mild hypercalcemia. We continued outpatient dose of Wellbutrin 150 mg by mouth twice a day and prescribed Lexapro 10 mg daily for complaints of increasing anxiety. She participated in therapeutic groups and activities and posed no management problem. She denied suicidal thoughts, intent or plan throughout the hospitalization. She requested to be discharged that she can return to work. Her plan is to save enough money to afford her own apartment so that she could leave her . She plans to follow-up with her therapist at [facility]. Patient Condition at Discharge: Stable Plan - Discharge Summary Discharge Rx Participant: No New Discharge Prescriptions: New Nicotine 21Mg/24Hr Patch [Habitrol] 1 patch TRANSDERM DAILY patch Escitalopram [Lexapro] 10 mg PO DAILY #30 tab Continue Atenolol/Chlorthalidone [Atenolol-Chlorthalidone 100-25] 1 tab PO DAILY Ergocalciferol (Vitamin D2) [Drisdol] 50,000 unit PO Q30D Lisinopril 20 mg PO DAILY HYDROcodone/APAP 5-325MG [[place] 5-325] 1 tab PO DAILY PRN PRN Reason: Pain buPROPion HCL [Wellbutrin XL] 150 mg PO BID Discharge Medication List Atenolol/Chlorthalidone [Atenolol-Chlorthalidone 100-25] 1 tab PO DAILY 04/13/18 [History] Ergocalciferol (Vitamin D2) [Drisdol] 50,000 unit PO Q30D 03/28/19 [History] HYDROcodone/APAP 5-325MG [[place] 5-325] 1 tab PO DAILY PRN 03/28/19 [History] Lisinopril 20 mg PO DAILY 03/28/19 [History] buPROPion HCL [Wellbutrin XL] 150 mg PO BID 03/28/19 [History] Escitalopram [Lexapro] 10 mg PO DAILY #30 tab 08/16/19 [Rx] Nicotine 21Mg/24Hr Patch [Habitrol] 1 patch TRANSDERM DAILY patch 08/16/19 [Rx] Follow up Appointment(s)/Referral(s): [facility] [Outside] - 08/16/19 12:00 pm (Appointment with Alanna Skelton) Robert Rendon MD [Primary Care Provider] - 1-2 days Patient Instructions/Handouts: How to Stop Smoking (DC), Depression (DC) Activity/Diet/Wound Care/Special Instructions: Activity and diet as tolerated. Avoid the use of street drugs and alcohol. Take all medications as prescribed. When you are in need of refills on your medications please contact your medical provider and/or outpatient psychiatrist to have this done. Please go to scheduled outpatient appointment for aftercare treatment. If symptoms return or become worse, call the crisis line at [phone] and/or go to the nearest emergency room for evaluation. Discharge Disposition: HOME SELF-CARE
[2019-08-17] MEDS ORDERED: CHLORTHALIDONE 25 MG TAB PO SCH (09:00)
== END 2019-08-16 11:50 | disposition home or self-care (01) | DRG 885 ==
LOC: EC 11:00 → 3MHU 14:09
PROVIDERS: ADMIT Psychiatry & Neurology Psychiatry; ATTEND Psychiatry & Neurology Psychiatry
DX: F33.2 Major depressive disorder, recurrent severe without psychotic features (principal); N17.9 Acute kidney failure, unspecified; R45.851 Suicidal ideations; T74.31XA Adult psychological abuse, confirmed, initial encounter; E83.52 Hypercalcemia; F10.21 Alcohol dependence, in remission; F17.200 Nicotine dependence, unspecified, uncomplicated; F41.9 Anxiety disorder, unspecified; G89.29 Other chronic pain; K21.9 Gastro-esophageal reflux disease without esophagitis; M54.9 Dorsalgia, unspecified; R10.31 Right lower quadrant pain; R22.9 Localized swelling, mass and lump, unspecified; I12.9 Hypertensive chronic kidney disease with stage 1 through stage 4 chronic kidney disease, or unspecified chronic kidney disease; N18.9 Chronic kidney disease, unspecified; Z79.899 Other long term (current) drug therapy; Z88.6 Allergy status to analgesic agent; Z62.810 Personal history of physical and sexual abuse in childhood; Y07.03 Male partner, perpetrator of maltreatment and neglect
CPT/HCPCS: 71046; 72100; 74176; 80053; 80061; 80306; 81001; 82075; 83036; 84443; 85025; 99285

== ENCOUNTER → 2020-06-28 | Outpatient (CLI) | payer OTHER ==
[2020-06-28 10:12] LABS: Basophils # (A) 0.1 k/uL (0-0.2); Basophils % (A) 1 %; Eosinophils # (A) 0.1 k/uL (0-0.7); Eosinophils % (A) 2 %; HCT 37.7 % (34.0-46.0); HGB 12.7 gm/dL (11.4-16.0); Lymphocytes # (A) 1.5 k/uL (1.0-4.8); Lymphocytes % (A) 21 %; MCH 32.1 pg (25.0-35.0); MCHC 33.7 g/dL (31.0-37.0); MCV 95.4 fL (80.0-100.0); Mean Platelet Volume 7.6; Monocytes # (A) 0.4 k/uL (0-1.0); Monocytes % (A) 6 %; Neutrophils # (A) 4.8 k/uL (1.3-7.7); Neutrophils % (A) 69 %; Platelet Count 329 k/uL (150-450); RBC 3.95 m/uL (3.80-5.40)
[2020-06-28 11:37] LABS: Erythrocyte Sedimentation Rate 29 mm/hr (0-20)
[2020-06-28 18:04] LABS: ALT 17 U/L (8-44); AST 17 U/L (13-35); African American GFR (CKD) 85.2 (60.0-200.0); Albumin/Globulin Ratio 2.42 (1.60-3.17); Alkaline Phosphatase 69 U/L (41-126); BUN/Creat Ratio 18.89 Ratio (12.00-20.00); Calcium 9.8 mg/dL (8.7-10.3); Carbon Dioxide 25.7 mmol/L (21.6-31.8); Chloride 108 mmol/L (96-109); Globulin 1.9 g/dL (1.6-3.3); Glucose 87 mg/dL (70-110); Non-African American GFR(CKD) 73.5 (60.0-200.0); Sodium 141 mmol/L (135-145); Total Bilirubin 0.3 mg/dL (0.3-1.2); Total Protein 6.5 g/dL (6.2-8.2)
[2020-06-28 20:53] LABS: DNA Double-Stranded NEGATIVE (NEGATIVE)
== END | disposition home or self-care (01) ==
LOC: LABWHC1 10:09
PROVIDERS: ATTEND Family Medicine
DX: R50.9 Fever, unspecified (principal); R21 Rash and other nonspecific skin eruption; R52 Pain, unspecified; Z03.818 Encounter for observation for suspected exposure to other biological agents ruled out
CPT/HCPCS: 80053; 85652; 85025; 86618; 86038; 86225; 36415; U0003; C9803